=== PATIENT | male | born 1980 | race Caucasian/White ===

== ENCOUNTER → 2017-03-03 | Outpatient (CLI) | payer OTHER ==
[2017-03-03 19:22] LABS: BASO # 0.1 10^3/uL (0.0-0.2); BASO % 0.5 % (0.0-1.0); EOS # 0.1 10^3/uL (0.0-0.50); EOS % 0.7 % (0.0-3.0); IMMATURE GRANULOCYTE % 0.6 % (0-0); LYMPH # 1.2 10^3/uL (1.5-4.5); LYMPH % 8.8 % (24.0-44.0); MEAN CORPUSCULAR HEMOGLOBIN 30.7 pg (27.0-33.0); MONO % 6.9 % (0.0-5.0); NEUTROPHILS # 11.4 10^3/uL (1.8-7.7); NEUTROPHILS % 82.5 % (36.0-66.0); PLATELET COUNT, AUTOMATED 292 10^3/uL (150-450); RED CELL DISTRIBUTION WIDTH 13.2 % (11.5-14.5); WHITE BLOOD COUNT 13.8 10^3/uL (4.0-10.0)
[2017-03-03 19:31] LABS: ADD MORPHOLOGY? NO
[2017-03-03 19:43] LABS: ALBUMIN 4.2 GM/DL (3.2-5.2); ALBUMIN/GLOBULIN RATIO 1.27 (1.00-1.93); ALKALINE PHOSPHATASE 59 U/L (45-117); ALT/SGPT 31 U/L (12-78); ANION GAP 4 MEQ/L (8-16); AST/SGOT 21 U/L (15-37); BILIRUBIN,TOTAL 0.4 MG/DL (0.2-1.0); BLOOD UREA NITROGEN 20 MG/DL (7-18); CALCIUM LEVEL 9.7 MG/DL (8.5-10.1); CARBON DIOXIDE LEVEL 33 MEQ/L (21-32); CHLORIDE LEVEL 104 MEQ/L (98-107); CREATININE FOR GFR 1.17 MG/DL (0.70-1.30); GLOMERULAR FILTRATION RATE > 60.0 (>60); GLUCOSE, FASTING 69 MG/DL (70-105); POTASSIUM SERUM 5.1 MEQ/L (3.5-5.1); SODIUM LEVEL 141 MEQ/L (136-145); TOTAL PROTEIN 7.5 GM/DL (6.4-8.2)
== END ==
LOC: M ADAMS 13:15
PROVIDERS: ATTEND Physician Assistant
DX: R55 Syncope and collapse (principal)

== ENCOUNTER → 2019-04-15 | Outpatient (REF) | payer OTHER ==
[2019-04-15 15:23] LABS: CHLAMYDIA DNA AMPLIFICATION NEGATIVE (NEGATIVE); GC DNA AMPLIFICATION NEGATIVE (NEGATIVE)
== END ==
LOC: M LAB REF 12:55
PROVIDERS: ATTEND Physician Assistant
DX: N50.812 Left testicular pain (principal)

== ENCOUNTER → 2019-04-17 | Outpatient (CLI) | payer OTHER ==
--- NOTE | 2019-04-17 10:25 | REP ---
Scrotal sonography: History: Left testicular pain. Palpable lump on the left. Findings: High-resolution bilateral scrotal sonography is performed. Findings: There right testicular dimensions are 5.0 x 2.5 x 3.5 cm. The left testis measures 4.5 x 2.4 x 3.5 cm. Epididymi are unremarkable bilaterally. Doppler flow is normal in both testes. Resistive indices are 0.56 on the right and 0.60 on the left. There are multiple fairly large macrocalcifications producing acoustic shadowing in each testis. Three of four on each side measuring up to 5 mm in right and up to 3 mm on the left. There is no evidence of intratesticular mass lesion on the right testis. The right testis is otherwise unremarkable. On the left in addition to the calcifications, there is a peripheral upper pole hypoechoic lesion corresponding to the area of palpable abnormality. This measures 5 x 5 x 3 mm and appears to be just beneath the tunica bulging and outward somewhat. Its sonographic appearance suggests a septated cystic lesion. This is not typical of a testicular neoplasm. In addition, in the inferior mid left testis there is another hypoechoic area measuring 2 x 2 x 3 mm which is of uncertain significance. There are some prominent veins in the left scrotum consistent with a left scrotal varicocele. Impression: 1. Scattered bilateral testicular macrocalcifications. 2. 5 mm septated cystic area in the periphery of the upper pole of the left testis corresponding to the area of palpable lump. There is a 3 mm hypoechoic area elsewhere in the left testis. These are of uncertain significance. 3. left-sided varicocele Electronically Signed by Petr Soriano MD 04/17/2019 11:08 A
== END ==
LOC: M RAD 08:00
PROVIDERS: ATTEND Physician Assistant
DX: N50.812 Left testicular pain (principal); N44.2 Benign cyst of testis; I86.1 Scrotal varices

== ENCOUNTER → 2019-05-04 | Outpatient (CLI) | payer OTHER | LOC: M LAB 10:44 | PROVIDERS: ATTEND Nurse Practitioner Family | DX: N50.9 Disorder of male genital organs, unspecified (principal) ==

== ENCOUNTER → 2019-06-02 | Outpatient (CLI) | payer OTHER ==
[2019-06-02 19:48] LABS: CHLAMYDIA DNA AMPLIFICATION NEGATIVE (NEGATIVE); GC DNA AMPLIFICATION NEGATIVE (NEGATIVE)
[2019-06-05 08:49] LABS: HSV TYPE I IgG SPECIFIC <0.91 index (0.00-0.90)
[2019-06-05 10:29] LABS: HIV 1&2 SCREEN CENTAUR NEGATIVE (NEGATIVE)
== END ==
LOC: M LABDRWAD 15:36
PROVIDERS: ATTEND Physician Assistant Medical
DX: Z72.51 High risk heterosexual behavior (principal)

== ENCOUNTER → 2019-06-09 | Outpatient (CLI) | payer OTHER ==
--- NOTE | 2019-06-09 19:49 | REP ---
Clinical: Testicular lesion. Comparison: 04/17/2019. Findings: The bilateral testicles and epididymi are normal in contour, parenchymal echogenicity, and vascularity without evidence for torsion or mass lesion. Bilateral scattered macrocalcifications measuring up to 5 mm are again noted and unchanged. Left-sided varicoceles measuring up to 4 mm are again identified and remains stable. No hydroceles noted. Right testicle measures 4.0 x 2.2 x 3.3 cm. Left testicle measures 5.1 x 2.0 x 2.6 cm. The previously identified 5 x 5 x 3 mm complex cyst along the periphery of the left testicle is again identified, but slightly more cystic and decreased in size currently measuring 4 x 2 x 3.5 mm. No new abnormalities are identified. Impression: 1. Previously identified small complex cystic area along the periphery of the left testicle appears slightly decreased in size. Lesion is again of uncertain significance. 2. Stable bilateral intratesticular calcifications and left-sided varicoceles. 3. No new significant abnormality appreciated. Electronically Signed by Moises Nicolas MD 06/09/2019 07:41 P
== END ==
LOC: M RAD 11:25
PROVIDERS: ATTEND Nurse Practitioner Family
DX: N50.89 Other specified disorders of the male genital organs (principal); I86.1 Scrotal varices